=== PATIENT | female | born 1960 | race Caucasian/White ===

== ENCOUNTER → 2019-12-07 | Outpatient (CLI) | payer MEDICARE ==
[2018-10-29 18:46] VITALS: BP 144/65
[~2019-12-07] MED LIST: ASPI325T8 PO; CLOP75TA PO; OXYC1TAB22 PO
--- NOTE | 2019-12-07 09:54 | KCIC ---
EXAM: Abdomen sonogram. HISTORY: Right upper quadrant pain. TECHNIQUE: Sonographic imaging of the abdomen was performed. COMPARISON: None. FINDINGS: The liver is enlarged. There is hepatic steatosis. No focal hepatic lesion is seen. There is mild common bile duct dilatation, measuring 8 mm. The gallbladder is surgically absent. The kidneys and spleen are unremarkable. The pancreas and aorta and inferior vena cava are partially obscured due to bowel gas. IMPRESSION: 1. Hepatomegaly and hepatic steatosis. 2. Mild common bile duct dilatation. This may be due to reservoir effect status post cholecystectomy. 3. Partially obscured midline structures due to bowel gas. Electronically signed by: Marti Braden MD (12/07/2019 9:51 AM) [id number]
== END | disposition home or self-care (01) ==
LOC: KCIC US 07:55
PROVIDERS: ATTEND Physician Assistant Medical
DX: K76.0 Fatty (change of) liver, not elsewhere classified (principal); Z90.49 Acquired absence of other specified parts of digestive tract
CPT/HCPCS: 76700

== ENCOUNTER → 2020-01-13 | Outpatient (CLI) | payer MEDICARE ==
[2018-10-29 18:46] VITALS: BP 144/65
--- NOTE | 2020-01-13 15:46 | KCIC ---
CT CHEST ABDOMEN WO CONTRAST Indication: Chest wall tenderness, right upper quadrant tenderness, 40 pack per day smoker, right upper quadrant pain, right lower chest wall pain Technique: Noncontrast CT imaging was performed of the chest and abdomen, multiplanar reconstruction images submitted. No oral contrast was given. Pelvis was not imaged. One or more of the following individualized dose reduction techniques were utilized for this examination: 1. Automated exposure control 2. Adjustment of the mA and/or kV according to patient size 3. Use of iterative reconstruction technique. Comparison: None. CHEST: Findings: There is moderate centrilobular emphysema. There is no pleural or pericardial fluid, pneumothorax, or infiltrate. Thoracic aortic caliber is within normal limits. There is a small 2 to 3 mm noncalcified right lower lobe nodule image 34 series 2. There is a tiny 1 to 2 mm posterior left upper lobe nodule image 20 series 2. No significantly enlarged nodes are identified of the chest, several small bilateral axillary nodes. There are couple of small calcifications associated with the right thyroid gland. There is likely hypodense nodule of the left isthmus of thyroid gland about 0.9 cm. Thoracic vertebral body stature and AP alignment are maintained. No displaced right rib fracture is identified. IMPRESSION: 1. There are couple of small nodules, largest up to 3 mm. Optional 12 month follow-up could be performed as per revised Fleischner guidelines. If patient is to be enrolled in lung cancer screening, 12 month low-dose CT could be performed. 2. There is likely small hypodense lesion of the left isthmus of thyroid gland. 3. There is centrilobular emphysema. Abdomen FINDINGS: There has been cholecystectomy. There is hepatic steatosis. Accurate evaluation of the abdominal visceral organs is limited without intravenous contrast, no obvious focal abnormality of the pancreas. There is a tiny 3 mm hypodense lesion of the left lobe liver image 55 series 2, too small to accurately characterize. No obvious focal abnormality is identified of the spleen. There is no adrenal nodularity. There has been cholecystectomy. There is no hydronephrosis or renal calculus. There is minimal calcified plaque of the abdominal aorta. Visualized bowel is not significantly dilated. The is no free air or free fluid of the visualized abdomen. The entirety of the bowel is not included. There is appearance of some increased submucosal fat of the ascending colon, mild wall thickening difficult to exclude. There is no significant inflammatory type change localized about the bowel. IMPRESSION: 1. There is no significant inflammatory type change. There is appearance of some increase submucosal fat of the ascending colon which could be associated with chronic inflammatory change and mild wall thickening not excluded although appearance could be accentuated by peristalsis and incomplete distention. Colon screening is advised if this has not been performed. 2. There is hepatic steatosis. Electronically signed by: Enrrique Kelly MD (01/13/2020 3:43 PM) [id number]
== END | disposition home or self-care (01) ==
LOC: KCIC CT 12:52
PROVIDERS: ATTEND Physician Assistant Medical
DX: K76.0 Fatty (change of) liver, not elsewhere classified (principal); K76.89 Other specified diseases of liver; J43.2 Centrilobular emphysema; R91.8 Other nonspecific abnormal finding of lung field; I10 Essential (primary) hypertension; E11.9 Type 2 diabetes mellitus without complications; F17.200 Nicotine dependence, unspecified, uncomplicated; Z79.01 Long term (current) use of anticoagulants; Z90.49 Acquired absence of other specified parts of digestive tract
CPT/HCPCS: 71250; 74150

== ENCOUNTER → 2020-10-07 | Outpatient (CLI) | payer MEDICARE ==
[2018-10-29 18:46] VITALS: BP 144/65
[~2020-10-07] MED LIST changes: +IOHEXOL 240 MG/ML 50ML VIAL. PO ONE
--- NOTE | 2020-10-07 17:33 | RAD ---
EXAM: Abdomen CT without intravenous contrast. HISTORY: Right upper quadrant pain. TECHNIQUE: Computed tomographic images of the abdomen were obtained without intravenous contrast. Multiplanar reformatting was performed. *One or more of the following individualized dose reduction techniques were utilized for this examination: 1. Automated exposure control. 2. Adjustment of the mA and/or kV according to patient size. 3. Use of iterative reconstruction technique. COMPARISON: Chest CT dated 01/13/2020. FINDINGS: Evaluation of the lower thorax demonstrates no infiltrate or pleural effusion. The heart is normal in size. There is hepatomegaly. There is an ill-defined hypodense lesion within the liver adjacent to the gallbladder fossa measuring approximately 6.4 cm. The gallbladder is surgically absent. The pancreas, spleen, adrenal glands and kidneys are unremarkable. No abnormally thickened or dilated loop of bowel is seen. The aorta is normal in caliber. There is no lymphadenopathy. There is no suspicious osseous lesion. IMPRESSION: 1. Hepatomegaly. There is an ill-defined hypodense lesion within the liver adjacent to the gallbladder fossa which may be due to geographic fatty infiltration. Liver sonography or a contrast-enhanced CT or MRI is recommended for characterization. 2. No acute abdominal finding. Electronically signed by: Marti Braden MD (10/07/2020 5:30 PM) [facility]
== END ==
LOC: CT 15:54
PROVIDERS: ATTEND Physician Assistant Medical
DX: K76.0 Fatty (change of) liver, not elsewhere classified (principal); K76.9 Liver disease, unspecified
CPT/HCPCS: 74150

== ENCOUNTER → 2020-11-23 | Outpatient (CLI) | payer MEDICARE ==
[2018-10-29 18:46] VITALS: BP 144/65
[~2020-11-23] MED LIST changes: +GADOTERATE 7.5 MMOL/15ML VIAL. IVP ONE; -IOHEXOL 240 MG/ML 50ML VIAL. PO ONE
--- NOTE | 2020-11-24 10:29 | KCIC ---
MRI ABDOMEN WITH AND WITHOUT CONTRAST- Clinical Indication: RUQ PAIN/ABNORMAL CT Follow up to abnormal CT. Unexplained RUQ pain. Comparison: CT abdomen without contrast, October 07, 2020. Complete abdominal ultrasound, December 07, 2019. TECHNIQUE: Routine multiplanar multiple pulse sequence images of the abdomen are obtained before and after 18 cc of Clariscan IV contrast. Findings: Hepatomegaly. There is severe fatty infiltration of the liver. The fatty infiltration is mildly heter ogeneous in segment 4 of the liver which may account for the hypodensity noted on CT. There is no res tricted diffusion. There is no abnormal postcontrast enhancement. There is a 5 mm cyst in segment 2/3 of the liver. There is a punctate cyst in segment 4A. Cholecystectomy. Spleen, pancreas, adrenal glands, and kidneys are unremarkable. There is no evidence of bowel obstruction. Extrahepatic duct measures up to 9 mm, similar to prior study and may be secon courtney to postcholecystectomy. The common bile duct tapers distally. Pancreatic duct is normal caliber. IMPRESSION: Hepatomegaly. Severe fatty infiltration of the liver. There is no liver mass. Electronically signed by: Rauedl Martel MD (11/24/2020 10:26 AM) [id number]
== END ==
LOC: KCIC MRI 12:59
PROVIDERS: ATTEND Internal Medicine Gastroenterology
DX: K76.0 Fatty (change of) liver, not elsewhere classified (principal); R16.0 Hepatomegaly, not elsewhere classified; K76.89 Other specified diseases of liver; Z90.49 Acquired absence of other specified parts of digestive tract
CPT/HCPCS: 74183; 82565; A9575

== ENCOUNTER → 2021-04-13 | Outpatient (CLI) | payer MEDICARE ==
[2018-10-29 18:46] VITALS: BP 144/65
[~2021-04-13] MED LIST changes: -GADOTERATE 7.5 MMOL/15ML VIAL. IVP ONE
--- NOTE | 2021-04-13 14:56 | RAD ---
STUDY: CT chest without contrast INDICATION: Abnormal chest CT. Lung nodule follow-up. COMPARISON: CT chest 01/13/2020 TECHNIQUE: Helical CT imaging of the chest performed without the use of intravenous contrast. Sagitta l and coronal reformats were obtained. One or more of the following individualized dose reduction techniques were utilized for this examinat ion: 1. Automated exposure control 2. Adjustment of the mA and/or kV according to patient size 3. Use of iterative reconstruction technique. FINDINGS: Lungs: Several millimetric nodules. The dominant 3.5 mm nodule at the right lower lobe on image 144 s eries 8 is unchanged. Several of the nodules are better visualized on this exam which included 1 mm s lices. Emphysema Vasculature: Scattered calcific atherosclerosis. Nonaneurysmal aorta. Main pulmonary artery caliber i s within normal limits. Mediastinum/rodrigo: No adenopathy by size criteria. Unchanged esophagus. Neck/axilla/chest wall: No interval change. Bones: No acute or aggressive osseous process. Upper abdomen: Hepatic steatosis. IMPRESSION: 1. Millimetric nodules seen on the comparison have not changed. No newly seen nodule that would meet size criteria for short-term follow-up. If the patient meets screening guidelines annual low dose CT of the chest is recommended. 2. Emphysema. Hepatic steatosis. Electronically signed by: DALIA BRONSON MD (04/13/2021 2:54 PM) [facility]
== END ==
LOC: CT 13:50
PROVIDERS: ATTEND Physician Assistant Medical
DX: R91.1 Solitary pulmonary nodule (principal); K76.0 Fatty (change of) liver, not elsewhere classified; J43.9 Emphysema, unspecified; I25.10 Atherosclerotic heart disease of native coronary artery without angina pectoris; R93.89 Abnormal findings on diagnostic imaging of other specified body structures
CPT/HCPCS: 71250